=== PATIENT | male | born 1960 | race Caucasian/White ===

== ENCOUNTER 2019-02-21 13:08 | Emergency (ER) | payer MEDICAID ==
[~2019-02-21] VITALS: Ht 185.4 cm; Wt 103.8 kg
[2019-02-21 13:49] LABS: BASOPHILS # (AUTO) 0.08 x10^3/uL (0-0.1); BASOPHILS % (AUTO) 1 % (0-1); EOSINOPHILS # (AUTO) 0.27 x10^3/uL (0-0.4); EOSINOPHILS % (AUTO) 4 % (1-7); LYMPHOCYTES % (AUTO) 23 % (22-44); MD NO; MEAN CORPUSCULAR HEMOGLOBIN 30.8 pg (27.5-34.5); MEAN CORPUSCULAR HGB CONC 33.7 g/dL (33.2-36.2); MEAN CORPUSCULAR VOLUME 91.4 fL (81-97); MEAN PLATELET VOLUME 8.7 fL (7.4-10.4); MONOCYTES # (AUTO) 0.51 x10^3/uL (0.2-0.8); MONOCYTES % (AUTO) 8 % (2-9); NEUTROPHILS % (AUTO) 64 % (42-75); PLATELET COUNT 308 x10^3/uL (130-400); RED BLOOD COUNT 5.06 x10^6/uL (4.38-5.82); RED CELL DISTRIBUTION WIDTH 12.9 % (9.4-14.8)
[2019-02-21 13:58] LABS: ALANINE AMINOTRANSFERASE 35 U/L (12-78); ALBUMIN 4.2 g/dL (3.4-5.0); ANION GAP 9 mmol/L (5-15); CALCIUM 9.2 mg/dL (8.5-10.1); CHLORIDE 111 mmol/L (98-107); CREATININE 1.29 mg/dL (0.7-1.3)
[2019-02-21 14:00] LABS: ALKALINE PHOSPHATASE 94 U/L (45-117); BILIRUBIN,TOTAL 0.6 mg/dL (0.2-1.0); TOTAL PROTEIN 7.8 g/dL (6.4-8.2)
--- NOTE | 2019-02-21 15:04 | NUR ---
TO ROOM FROM LOBBY. NAD.
--- NOTE | 2019-02-21 15:17 | NUR ---
PT TO ROOM 14 W/ C/O FEELING DIZZY AND HAVING BLURRY VISION. PT STATES IT STARTED A FEW MONTHS AGO. WAS SEEN AT [facility] YESTERDAY AND HAD A FULL WORKUP. [facility]. [address] [employer]. MONITORS APPLIED.
--- NOTE | 2019-02-21 16:14 | NUR ---
PT RESTING ON GURNEY. NADN. MERINO.
[2019-02-21] MEDS ORDERED: MECLIZINE CHEWABLE 25 MG TAB PO ONE (17:00)
[2019-02-21] MEDS ORDERED: MECLIZINE CHEWABLE 25 MG TAB ONE (17:03)
--- NOTE | 2019-02-21 17:05 | NUR ---
PT RESTING ON GURNEY. NADN. MERINO.
--- NOTE | 2019-02-21 17:20 | NUR ---
PT PROVIDED W/ DINNER TRAY.
[2019-02-21] MEDS ORDERED: LISINOPRIL 20 MG TABLET PO ONE (18:00)
[2019-02-21] MEDS ORDERED: ASPIRIN 325 MG TABLET PO ONE (18:00)
[2019-02-21] MEDS ORDERED: ASPIRIN 325 MG TABLET ONE (18:12)
[2019-02-21] MEDS ORDERED: LISINOPRIL 20 MG TABLET ONE (18:12)
[2019-02-21] MEDS ORDERED: LIDOCAINE 1%, 10ML INFIL ONE (18:30)
--- NOTE | 2019-02-21 18:42 | NUR ---
PT AMBULATORY W/ STEADY GAIT.
[2019-02-21 19:03] VITALS: BP 120/50
== END 2019-02-21 19:06 | disposition home or self-care (01) ==
LOC: EDBD 13:08 → ED 18:30
DX: H93.13 Tinnitus, bilateral (principal); I10 Essential (primary) hypertension
CPT/HCPCS: 36415; 80053; 80329; 85025; 93005; 99284; G0480